=== PATIENT | female | born 1940 | race Hispanic/Latino ===

== ENCOUNTER 2016-10-17 19:40 | Emergency (ER) | payer MEDICARE, MEDICAID ==
[2016-10-17 19:40] VITALS: BMI 24.0
[2016-10-17 20:10] VITALS: BP 109/51; PULSE 70; RESP 18; TEMP 97.9; O2SAT 99
[2016-10-17] MEDS ORDERED: Apap-Butalbital-Caffeine 325-50-40mg Tab PO STA (20:26)
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
[2016-10-17] MEDS ORDERED: Apap-Butalbital-Caffeine 325-50-40mg Tab ONE (20:36)
[2016-10-18] MEDS ORDERED: Silver Sulfadiazine 1% CREAM (50 gm) ONE (00:36)
[2016-10-18] MEDS ORDERED: Bacitracin Ointment 30 GM TUBE ONE (00:50)
[2016-10-18] MEDS ORDERED: Bacitracin OINT 15GM TOP SCH (01:30)
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
[2016-10-18] MEDS ORDERED: Silver Sulfadiazine 1% Cream (20 gm) TOP SCH (09:00)
--- NOTE | 2016-10-18 09:32 | RAD ---
PROCEDURE: Left Knee Radiographs. HISTORY: Pain. COMPARISON: None. FINDINGS: BONES: There is no acute displaced fracture or bone destruction. There is diffuse bone demineralization. JOINTS: There is severe tricompartmental degenerative osteoarthrosis with severe reduced joint space, marginal osteophytes and tibial spiking, worse in the lateral compartment. JOINT EFFUSION: There is a small suprapatellar joint effusion. . OTHER FINDINGS: None. IMPRESSION: Severe tricompartmental degenerative osteoarthrosis, worse in the lateral compartment. Small suprapatellar joint effusion.
--- NOTE | 2016-10-18 09:43 | RAD ---
PROCEDURE: Right Ankle Radiographs. HISTORY: injury, pain/abrasion medial aspect COMPARISON: Correlation made with concurrent radiographs of the right foot FINDINGS: BONES: No evidence of acute displaced fracture nor dislocation. Talar dome intact. Mild diffuse demineralization JOINTS: Ankle mortise maintained. No significant osteoarthritis. . SOFT TISSUES: Questionable minimal medial soft tissue swelling OTHER FINDINGS: None. IMPRESSION: No evidence of acute displaced fracture nor dislocation.
--- NOTE | 2016-10-18 09:55 | RAD ---
PROCEDURE: Right Foot Radiographs. For pre HISTORY: Heel pain COMPARISON: None. FINDINGS: BONES: There is diffuse bone demineralization. There is no acute displaced fracture or bone destruction. JOINTS: There is moderate degenerative osteoarthrosis in the 1st MTP joint and mild degenerative osteoarthrosis in the talonavicular and subtalar joints. SOFT TISSUES: Normal. OTHER FINDINGS: None. IMPRESSION: No acute displaced fracture or dislocation. Degenerative osteoarthrosis in the 1st MTP, talonavicular and subtalar joints.
== END 2016-10-18 01:39 | disposition home or self-care (01) ==
LOC: H.ER 19:40
DX: M25.562 Pain in left knee (principal); M79.671 Pain in right foot; S90.811A Abrasion, right foot, initial encounter; Y04.2XXA Assault by strike against or bumped into by another person, initial encounter; I10 Essential (primary) hypertension; M19.90 Unspecified osteoarthritis, unspecified site

== ENCOUNTER 2018-05-23 19:21 | Emergency (ER) | payer MEDICARE, MEDICAID ==
[2018-05-23 19:33] VITALS: BP 111/62; TEMP 97.6; O2SAT 98
[2018-05-23 19:34] VITALS: BMI 17.2
[2018-05-23 19:38] VITALS: PULSE 90; RESP 18
== END 2018-05-24 01:30 | disposition left against medical advice (07) ==
LOC: H.ER 19:21
DX: Z02.89 Encounter for other administrative examinations (principal)

== ENCOUNTER 2018-05-30 23:28 | Emergency (ER) | payer MEDICARE, MEDICAID ==
[2018-05-30 23:47] VITALS: BMI 16.2
[2018-05-30 23:50] VITALS: RESP 18
--- NOTE | 2018-05-31 02:08 | ED PDOC ---
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 Patient reports she was discharged from [facility] one week after hospitalization and states while there she injured her knee. She states she never got an x-ray and now would like an x-ray. PMD: Timi Ruff Past Medical History Reviewed: Historical Data, Nursing Documentation, Vital Signs Vital Signs: Last Vital Signs Temp 97.8 F 05/30/18 23:48 Pulse 96 H 05/30/18 23:48 Resp 18 05/30/18 23:48 BP 116/75 05/30/18 23:48 Pulse Ox 95 05/30/18 23:48 - Medical History PMH: Arthritis, Back Problems, Fractures (L leg L ankle, L foot), Gastritis, Gastrointestinal Ulcer, HTN, Hypercholesterolemia, Hypothyroidism, Migraine, Peripheral Edema (chronic edema and redness), Pneumonia, Pneumothorax, Chronic Kidney Disease Denies: Anxiety (denied), Bipolar Disorder (denied), Diabetes, Deep Vein Thrombosis, Hepatitis, HIV, Seizures, Sexually Transmitted Disease - Surgical History Surgical History: Appendectomy, Cholecystectomy, Tonsillectomy Denies: Pacemaker - Family History Family History: States: Unknown Family Hx - Immunization History Hx Tetanus Toxoid Vaccination: Yes Hx Influenza Vaccination: Yes Hx Pneumococcal Vaccination: Yes - Home Medications Home Medications: Ambulatory Orders Medication Instructions Recorded Acetaminophen/Butalbital/Caf 1 tab PO Q6 PRN #30 tab 09/21/17 [Fioricet] Synthroid 125 mcg PO DAILY 12/17/17 Ranitidine HCl [Zantac 75] 300 mg PO DAILY 12/20/17 Multivitamin [Daily Wilmer] 1 tab PO DAILY 12/21/17 Naloxegol Oxalate [Movantik] 25 mg PO DAILY 12/21/17 Omeprazole 40 mg PO DAILY 12/21/17 Acetaminophen/Butalbital/Caf 1 tab PO Q6 PRN tab 12/25/17 [Fioricet] Loratadine [Claritin] 10 mg PO DAILY #30 tab 12/25/17 Ciprofloxacin [Cipro] 500 mg PO BID 7 Days tab 05/30/18 Lactobacillus Acidophilus [Bacid 1 cap PO BID 7 Days cap 05/30/18 Acidophilus] - Allergies Allergies/Adverse Reactions: Allergies Allergy/AdvReac Type Severity Reaction Status Date / Time oxycodone HCl [From Percocet] Allergy urticaria Verified 05/30/18 23:47 to "IV percocet" Sulfa (Sulfonamide Allergy SHORTNESS Verified 05/30/18 23:47 Antibiotics) OF BREATH aspirin AdvReac pt has Verified 05/30/18 23:47 ulcer ciprofloxacin AdvReac DIZZINESS Verified 05/30/18 23:47 doxycycline AdvReac DIZZINESS Verified 05/30/18 23:47 ibuprofen [From Motrin IB] AdvReac VOMITING Verified 05/30/18 23:47 naproxen AdvReac pt has Verified 05/30/18 23:47 ulcer Review of Systems ROS Statement: Except As Marked, All Systems Reviewed And Found Negative Musculoskeletal: Positive for: Leg Pain (Left knee pain) Physical Exam - Reviewed Nursing Documentation Reviewed: Yes Vital Signs Reviewed: Yes - Physical Exam Appears: Positive for: Well, No Acute Distress Head Exam: Positive for: ATRAUMATIC, NORMOCEPHALIC Extremity: Positive for: Normal ROM (of knee), Swelling (mild over the left knee), Other (contractures of hands bilaterally) Neurological/Psych: Positive for: Awake, Alert, Oriented (x3) - ECG O2 Sat by Pulse Oximetry: 95 (RA) Pulse Ox Interpretation: Normal Medical Decision Making Medical Decision Making: Time: 120 Initial impression: 77 y/o female with left knee injury Initial plan: --Knee x-ray 151 --Knee x-ray shows no fracture or dislocation. Patient is stable for discharge. --Diagnosis: Knee contusion ScribeAttestation: Documented Doreen Burrell, acting as a scribe for Adam Hdez MD. Provider ScribeAttestation: All medical record entries made by the Scribe were at my direction and personally dictated by me. I have reviewed the chart and agree that the record accurately reflects my personal performance of the history, physical exam, medical decision making, and the department course for this patient. I have also personally directed, reviewed, and agree with the discharge instructions and disposition. Disposition - Clinical Impression Clinical Impression: Knee contusion - Patient ED Disposition Is Patient to be Admitted: No - Disposition Disposition: Routine/Home Disposition Time: 01:52 Condition: STABLE Forms: [facility] (Portuguese)
[2018-05-31 07:34] VITALS: BP 116/78; PULSE 88; TEMP 98.2; O2SAT 99
--- NOTE | 2018-05-31 09:01 | RAD ---
Date of service: 05/31/2018 PROCEDURE: Left Knee Radiographs. HISTORY: Pain. COMPARISON: Left knee radiographs 10/17/2016. TECHNIQUE: 2 views obtained. FINDINGS: BONES: No acute fracture or destructive bony lesion identified. JOINTS: Further joint space narrowing is appreciated with small subchondral cyst formation at the lateral greater than medial femorotibial compartment with patellofemoral articulation also disease. Cortical sclerosis is increased at the lateral femorotibial compartment worst osteophyte development is stable medially and laterally, also seen at the patellofemoral joint. Overall pattern reflects late stage osteoarthritis. JOINT EFFUSION: Small subdural bursa effusion suspected. OTHER FINDINGS: None. IMPRESSION: Increased osteoarthritis now at late stage of disease. No acute fracture dislocation. All 3 joint compartments are affected but lateral femorotibial compartment is the worst.
== END 2018-05-31 06:35 | disposition home or self-care (01) ==
LOC: H.ER 23:28
DX: S80.02XA Contusion of left knee, initial encounter (principal); X58.XXXA Exposure to other specified factors, initial encounter; Y92.89 Other specified places as the place of occurrence of the external cause; E03.9 Hypothyroidism, unspecified; E11.22 Type 2 diabetes mellitus with diabetic chronic kidney disease; E78.00 Pure hypercholesterolemia, unspecified; I12.9 Hypertensive chronic kidney disease with stage 1 through stage 4 chronic kidney disease, or unspecified chronic kidney disease; Z88.1 Allergy status to other antibiotic agents

== ENCOUNTER 2018-05-31 12:34 | Emergency (ER) | payer MEDICARE, MEDICAID ==
[2018-05-31 12:34] VITALS: BMI 16.2
[2018-05-31 13:11] VITALS: RESP 17; O2SAT 96
--- NOTE | 2018-05-31 14:12 | ED PDOC ---
HPI: General Adult Time Seen by Provider: 05/31/18 12:46 Chief Complaint (Nursing): Weakness/Neurological Deficit Chief Complaint (Provider): Weakness History Per: Patient History/Exam Limitations: no limitations Onset/Duration Of Symptoms: Hrs Current Symptoms Are (Timing): Still Present Additional Complaint(s): Patient is a 77 y/o female with an extensive PMHx who presents to the ED for evaluation of generalized body weakness onset this morning. Patient is well known to this ED for multiple visits. Patient denies any shortness of breath or chest pain. Of note, patient was just discharged at 9:30 this morning. PCP: None Provided Past Medical History Reviewed: Historical Data, Nursing Documentation, Vital Signs Vital Signs: Last Vital Signs Temp 97.9 F 05/31/18 13:08 Pulse 86 05/31/18 13:08 Resp 17 05/31/18 13:08 BP 102/73 05/31/18 13:08 Pulse Ox 96 05/31/18 13:08 - Medical History PMH: Arthritis, Back Problems, Fractures (L leg L ankle, L foot), Gastritis, Gastrointestinal Ulcer, HTN, Hypercholesterolemia, Hypothyroidism, Migraine, Peripheral Edema (chronic edema and redness), Pneumonia, Pneumothorax, Chronic Kidney Disease Denies: Anxiety (denied), Bipolar Disorder (denied), Diabetes, Deep Vein Thrombosis, Hepatitis, HIV, Seizures, Sexually Transmitted Disease - Surgical History Surgical History: Appendectomy, Cholecystectomy, Tonsillectomy Denies: Pacemaker - Family History Family History: States: Unknown Family Hx - Immunization History Hx Tetanus Toxoid Vaccination: Yes Hx Influenza Vaccination: Yes Hx Pneumococcal Vaccination: Yes - Home Medications Home Medications: Ambulatory Orders Medication Instructions Recorded Acetaminophen/Butalbital/Caf 1 tab PO Q6 PRN #30 tab 09/21/17 [Fioricet] Synthroid 125 mcg PO DAILY 12/17/17 Ranitidine HCl [Zantac 75] 300 mg PO DAILY 12/20/17 Multivitamin [Daily Wilemr] 1 tab PO DAILY 12/21/17 Naloxegol Oxalate [Movantik] 25 mg PO DAILY 12/21/17 Omeprazole 40 mg PO DAILY 12/21/17 Acetaminophen/Butalbital/Caf 1 tab PO Q6 PRN tab 12/25/17 [Fioricet] Loratadine [Claritin] 10 mg PO DAILY #30 tab 12/25/17 Ciprofloxacin [Cipro] 500 mg PO BID 7 Days tab 05/30/18 Lactobacillus Acidophilus [Bacid 1 cap PO BID 7 Days cap 05/30/18 Acidophilus] - Allergies Allergies/Adverse Reactions: Allergies Allergy/AdvReac Type Severity Reaction Status Date / Time oxycodone HCl [From Percocet] Allergy urticaria Verified 05/31/18 16:50 to "IV percocet" Sulfa (Sulfonamide Allergy SHORTNESS Verified 05/31/18 16:50 Antibiotics) OF BREATH aspirin AdvReac pt has Verified 05/31/18 16:50 ulcer ciprofloxacin AdvReac DIZZINESS Verified 05/31/18 16:50 doxycycline AdvReac DIZZINESS Verified 05/31/18 16:50 ibuprofen [From Motrin IB] AdvReac VOMITING Verified 05/31/18 16:50 naproxen AdvReac pt has Verified 05/31/18 16:50 ulcer Review of Systems ROS Statement: Except As Marked, All Systems Reviewed And Found Negative Constitutional: Positive for: Weakness (generalized body) Cardiovascular: Negative for: Chest Pain Respiratory: Negative for: Shortness of Breath Physical Exam - Reviewed Nursing Documentation Reviewed: Yes Vital Signs Reviewed: Yes - Physical Exam Appears: Positive for: No Acute Distress Head Exam: Positive for: ATRAUMATIC, NORMAL INSPECTION, NORMOCEPHALIC Skin: Positive for: Normal Color, Warm, DRY Eye Exam: Positive for: EOMI, Normal appearance, PERRL ENT: Positive for: Normal ENT Inspection Neck: Positive for: Normal, Painless ROM, Supple Cardiovascular/Chest: Positive for: Regular Rate, Rhythm. Negative for: Murmur Respiratory: Positive for: Normal Breath Sounds. Negative for: Respiratory Distress Gastrointestinal/Abdominal: Positive for: Normal Exam, Soft. Negative for: Tenderness Back: Positive for: Normal Inspection. Negative for: L CVA Tenderness, R CVA Tenderness, Vertebral Tenderness Extremity: Positive for: Normal ROM. Negative for: Pedal Edema, Deformity Neurological/Psych: Positive for: Alert, Oriented (x3) - ECG O2 Sat by Pulse Oximetry: 96 (RA) Pulse Ox Interpretation: Normal Medical Decision Making Medical Decision Making: Time: 1342 Impression: Chronic Generalized Weakness Plan: EKG Glucose, Blood, POC Time: 1330 Patient is in no acute distress. Patient ordered Macedonian food to the ED. Scribe Attestation: Documented by Singh Dang, acting as a scribe Bhavya Fields MD. Provider Scribe Attestation: All medical record entries made by the Scribe were at my direction and personally dictated by me. I have reviewed the chart and agree that the record accurately reflects my personal performance of the history, physical exam, medical decision making, and the department course for this patient. I have also personally directed, reviewed, and agree with the discharge instructions and disposition. Disposition - Clinical Impression Clinical Impression: Episode of generalized weakness - Disposition Disposition: Routine/Home Disposition Time: 15:15 Condition: STABLE Additional Instructions: FOLLOW-UP WITH PMD WITHIN 2 DAYS FOR REEVALUATION. Instructions: Weakness (ED) Forms: [facility] ([place] Island[place])
[2018-05-31 15:50] VITALS: BP 110/73; PULSE 69; TEMP 98.8
--- NOTE | 2018-06-01 10:24 | CARD ---
APPROVED REPORT Date of service: 05/31/2018 EKG Measurement Heart [id number] <Conclusion> Sinus tachycardia Otherwise normal ECG
== END 2018-05-31 15:15 | disposition home or self-care (01) ==
LOC: H.ER 12:34
DX: M62.81 Muscle weakness (generalized) (principal); E11.22 Type 2 diabetes mellitus with diabetic chronic kidney disease

== ENCOUNTER 2018-07-14 20:54 | Emergency (ER) | payer MEDICARE, MEDICAID ==
[2018-07-14 20:54] VITALS: BMI 16.2
[2018-07-14 21:01] VITALS: O2SAT 97
[2018-07-14 22:42] LABS: BASO # 0.1 K/uL (0.0-0.2); BASO % 0.9 % (0.0-2.0); EOS # 0.4 K/uL (0.0-0.7); EOS % 4.6 % (0.0-4.0); HEMOGLOBIN 10.8 g/dL (12.0-16.0); LYMPH # 1.1 K/uL (1.0-4.3); LYMPH % 13.7 % (20.0-40.0); MEAN CELL VOLUME 84.5 fl (81.0-99.0); MEAN CORPUSCULAR HEMOGLOBIN 27.5 pg (27.0-31.0); MEAN CORPUSCULAR HGB CONC 32.5 g/dL (33.0-37.0); MEAN PLATELET VOLUME 8.4 fl (7.2-11.7); MONO # 0.8 K/uL (0.0-0.8); MONO % 9.5 % (0.0-10.0); NEUT # 5.9 K/uL (1.8-7.0); NEUT % 71.3 % (50.0-75.0); RBC 3.93 Mil/uL (3.80-5.20); RED CELL DISTRIBUTION WIDTH 14.3 % (11.5-14.5); WHITE BLOOD COUNT 8.3 K/uL (4.8-10.8)
[2018-07-14 22:47] LABS: PROTHROMBIN TIME 11.2 Seconds (9.8-13.1)
[2018-07-14 22:53] LABS: ALB/GLOB RATIO 1.2 (1.0-2.1); ALBUMIN 3.8 g/dL (3.5-5.0); ALT/SGPT 31 U/L (9-52); AST/SGOT 35 U/L (14-36); BLOOD UREA NITROGEN 14 mg/dl (7-17); CALCIUM 8.8 mg/dL (8.4-10.2); GFR NON-AFRICAN AMERICAN > 60
--- NOTE | 2018-07-14 22:55 | ED PDOC ---
HPI: CCC, URI, Sore Throat Time Seen by Provider: 07/14/18 21:09 Chief Complaint (Nursing): Cough, Cold, Congestion Chief Complaint (Provider): Cough History Per: Patient History/Exam Limitations: no limitations Have you had recent travel within the past 21 days to any of the following countries: [place], [place], [place] or [place]?: No Onset/Duration Of Symptoms: Days Current Symptoms Are (Timing): Still Present Additional Complaint(s): 77yo female with history of hypertension, pneumonia, comes to ER reporting a productive cough with yellow sputum for the past 1 week. She also reports increasing chest tightness as well as subjective fever, nasal congestion and rhinorrhea. She was evaluated at [facility] [place] ago and was admitted until today. Patient is concerned because she believes she was discharged prematurely as she complained about her roommate and not because she was feeling better. She reports shortness of breath as well. Patient states she has left knee pain after she fell and injured her knee while at [facility]. She denies any vomiting or diarrhea, and offers no additional complaints. PMD: Dr. Ruff Past Medical History Reviewed: Historical Data, Nursing Documentation, Vital Signs Vital Signs: Last Vital Signs Temp 97.9 F 07/14/18 20:59 Pulse 88 07/14/18 20:59 Resp 16 07/14/18 20:59 BP 147/110 H 07/14/18 20:59 Pulse Ox 97 07/14/18 20:59 Primary Care Provider: Timi Ruff - Medical History PMH: Arthritis, Back Problems, Fractures (L leg L ankle, L foot), Gastritis, Gastrointestinal Ulcer, HTN, Hypercholesterolemia, Hypothyroidism, Migraine, Peripheral Edema (chronic edema and redness), Pneumonia, Pneumothorax, Chronic Kidney Disease Denies: Anxiety (denied), Bipolar Disorder (denied), Diabetes, Deep Vein Thrombosis, Hepatitis, HIV, Seizures, Sexually Transmitted Disease - Surgical History Surgical History: Appendectomy, Cholecystectomy, Tonsillectomy Denies: Pacemaker - Family History Family History: States: Unknown Family Hx - Immunization History Hx Tetanus Toxoid Vaccination: Yes Hx Influenza Vaccination: Yes Hx Pneumococcal Vaccination: Yes - Home Medications Home Medications: Ambulatory Orders Medication Instructions Recorded Acetaminophen/Butalbital/Caf 1 tab PO Q6 PRN #30 tab 09/21/17 [Fioricet] Synthroid 125 mcg PO DAILY 12/17/17 Ranitidine HCl [Zantac 75] 300 mg PO DAILY 12/20/17 Multivitamin [Daily Wilmer] 1 tab PO DAILY 12/21/17 Naloxegol Oxalate [Movantik] 25 mg PO DAILY 12/21/17 Omeprazole 40 mg PO DAILY 12/21/17 Acetaminophen/Butalbital/Caf 1 tab PO Q6 PRN tab 12/25/17 [Fioricet] Loratadine [Claritin] 10 mg PO DAILY #30 tab 12/25/17 Ciprofloxacin [Cipro] 500 mg PO BID 7 Days tab 05/30/18 Lactobacillus Acidophilus [Bacid 1 cap PO BID 7 Days cap 05/30/18 Acidophilus] Lidocaine 5% [Lidoderm] 1 ea TD DAILY PRN #30 patch 07/14/18 guaiFENesin/Dextromethorphan 10 ml PO Q6 PRN #240 ml 07/14/18 [guaiFENesin-DM] - Allergies Allergies/Adverse Reactions: Allergies Allergy/AdvReac Type Severity Reaction Status Date / Time oxycodone HCl [From Percocet] Allergy urticaria Verified 05/31/18 16:50 to "IV percocet" Sulfa (Sulfonamide Allergy SHORTNESS Verified 05/31/18 16:50 Antibiotics) OF BREATH aspirin AdvReac pt has Verified 05/31/18 16:50 ulcer ciprofloxacin AdvReac DIZZINESS Verified 05/31/18 16:50 doxycycline AdvReac DIZZINESS Verified 05/31/18 16:50 ibuprofen [From Motrin IB] AdvReac VOMITING Verified 05/31/18 16:50 naproxen AdvReac pt has Verified 05/31/18 16:50 ulcer Review of Systems ROS Statement: Except As Marked, All Systems Reviewed And Found Negative Constitutional: Positive for: Fever ENT: Positive for: Nose Discharge, Nose Congestion Respiratory: Positive for: Cough, Shortness of Breath, Sputum. Negative for: Hemoptysis Physical Exam - Reviewed Nursing Documentation Reviewed: Yes Vital Signs Reviewed: Yes - Physical Exam Appears: Positive for: Non-toxic, No Acute Distress Head Exam: Positive for: ATRAUMATIC, NORMAL INSPECTION, NORMOCEPHALIC Skin: Positive for: Normal Color Eye Exam: Positive for: Normal appearance Neck: Positive for: Supple Cardiovascular/Chest: Positive for: Regular Rate, Rhythm. Negative for: Tachycardia Respiratory: Positive for: Rhonchi (diffuse faint rhonchi bilaterally). Negative for: Wheezing, Respiratory Distress Gastrointestinal/Abdominal: Positive for: Normal Exam, Soft Back: Positive for: Normal Inspection Extremity: Positive for: Normal ROM (FROM of left knee). Negative for: Tenderness (left knee non-tender), Pedal Edema, Deformity Neurological/Psych: Positive for: Awake, Alert, Normal Tone - Laboratory Results Result Diagrams: 07/14/18 22:35 07/14/18:35 Lab Results: PT 11.2 Seconds (9.8-13.1) 07/14/18 22:35 INR 1.0 07/14/18:35 APTT 30.0 Seconds (25.6-37.1) 07/14/18:35 - ECG O2 Sat by Pulse Oximetry: 97 (RA) Pulse Ox Interpretation: Normal Medical Decision Making Medical Decision Making: Impression: Cough Differential: Pneumonia, bronchitis, URI, malingering Plan: -- CXR -- EKG -- XR Left knee -- Rapid strep -- Rapid flu Scribe Attestation: Documented by Nicki Hadley acting as a scribe for Sury Smith MD. Provider Scribe Attestation: All medical record entries made by the Scribe were at my direction and personal ly dictated by me. I have reviewed the chart and agree that the record accurately reflects my personal performance of the history, physical exam, medical decision making, and the department course for this patient. I have also personally directed, reviewed, and agree with the discharge instructions and disposition. Time: 2300 -- Labs reviewed and demonstrate no acute abnormalities. -- CXR demonstrates no acute abnormalities, no pneumonia -- Left Knee XR demosntrates no acute fracture and osteoarthritis. -- Discussed with patient findings. Patient is stable for discharge home with instruction for outpatient follow up. Scribe Attestation: Documented by Myrtle Cui, acting as a scribe for Sury Smith MD. Provider Scribe Attestation: All medical record entries made by the Scribe were at my direction and personally dictated by me. I have reviewed the chart and agree that the record accurately reflects my personal performance of the history, physical exam, medical decision making, and the department course for this patient. I have also personally directed, reviewed, and agree with the discharge instructions and disposition. Disposition - Clinical Impression Clinical Impression: Cough, Osteoarthritis of knee Counseled Patient/Family Regarding: Studies Performed, Diagnosis, Need For Followup - Disposition Referrals: Timi Ruff [Non-Staff] - 07/15/18 Disposition: Routine/Home Disposition Time: 23:00 Condition: STABLE Prescriptions: guaiFENesin/Dextromethorphan [guaiFENesin-DM] 10 ml PO Q6 PRN #240 ml PRN Reason: Cough Lidocaine 5% [Lidoderm] 1 ea TD DAILY PRN #30 patch PRN Reason: PAIN Instructions: Osteoarthritis (DC), Cough, Adult (DC) Forms: [employer] (Sinhala)
[2018-07-14 23:04] LABS: B-TYPE NATRIURETIC PEPTIDE 473 pg/ml (0-900)
[2018-07-15 07:08] VITALS: BP 132/64; PULSE 77; RESP 18; TEMP 98.2
--- NOTE | 2018-07-15 10:49 | RAD ---
Date of service: 07/14/2018 HISTORY: cough chest pain COMPARISON: 06/29/2015 TECHNIQUE: Chest PA and lateral views FINDINGS: LUNGS: Evaluation limited by oblique positioning of the patient. No pulmonary infiltrate. PLEURA: No significant pleural effusion identified. No pneumothorax apparent. CARDIOVASCULAR: No aortic atherosclerotic calcification present. Normal cardiac size. There prominence of the hilar structures bilaterally. This may be artifactual due to oblique positioning. No evidence of adenopathy in the lateral projection. OSSEOUS STRUCTURES: No significant abnormalities. VISUALIZED UPPER ABDOMEN: Normal. OTHER FINDINGS: None. IMPRESSION: No infiltrate. Limited examination. Possible hilar prominence bilaterally in the oblique frontal projection. Consider further evaluation with computed tomography of the chest.
--- NOTE | 2018-07-15 13:18 | RAD ---
Date of service: 07/14/2018 PROCEDURE: Left Knee Radiographs. HISTORY: Pain. COMPARISON: None. TECHNIQUE: Three views obtained. FINDINGS: BONES: Normal. No fracture. JOINTS: Severe tricompartmental osteoarthritis most pronounced in the lateral joint compartment. No articular erosion. JOINT EFFUSION: None. OTHER FINDINGS: None. IMPRESSION: Tricompartmental osteoarthritis. No fracture.
--- NOTE | 2018-07-15 17:03 | CARD ---
APPROVED REPORT Date of service: 07/14/2018 EKG Measurement Heart [id number] <Conclusion> Sinus rhythm with frequent premature ventricular complexes Otherwise normal ECG
== END 2018-07-15 00:06 | disposition home or self-care (01) ==
LOC: H.ER 20:54
DX: R05 Cough (principal); M17.10 Unilateral primary osteoarthritis, unspecified knee; E11.22 Type 2 diabetes mellitus with diabetic chronic kidney disease; E03.9 Hypothyroidism, unspecified; I12.9 Hypertensive chronic kidney disease with stage 1 through stage 4 chronic kidney disease, or unspecified chronic kidney disease; N18.9 Chronic kidney disease, unspecified; R07.89 Other chest pain; Z88.1 Allergy status to other antibiotic agents; Z88.2 Allergy status to sulfonamides; Z88.5 Allergy status to narcotic agent; Z88.6 Allergy status to analgesic agent